=== PATIENT | male | born 1945 | race Caucasian/White ===

== ENCOUNTER 2024-04-14 13:52 | Day surgery (SDC) | payer OTHER ==
[2024-04-14] MEDS ORDERED: GLUCAGON 1 MG VIAL ONE (16:27)
[2024-04-14] MEDS ORDERED: IOVERSOL 320 MG/ML - 50 ML VIAL IV ONE ×2 (16:27→18:00)
== END 2024-04-14 19:00 | disposition designated cancer center or children's hospital (05) ==
LOC: AMB-ERCP 13:52
PROVIDERS: ATTEND Internal Medicine
DX: K80.32 Calculus of bile duct with acute cholangitis without obstruction (principal); R17 Unspecified jaundice; E80.6 Other disorders of bilirubin metabolism; R74.01 Elevation of levels of liver transaminase levels; J45.909 Unspecified asthma, uncomplicated; C61 Malignant neoplasm of prostate